=== PATIENT | male | born 1975 | race Caucasian/White ===

== ENCOUNTER 2021-04-10 19:40 | Emergency (ER) | payer SELFPAY ==
[~2021-04-10] VITALS: Ht 182.9 cm; Wt 113.4 kg
[2021-04-10 19:43] VITALS: BP 116/76
== END 2021-04-11 02:03 | disposition left against medical advice (07) ==
LOC: ER 19:43
DX: R07.81 Pleurodynia (principal); M54.50 Low back pain, unspecified; Z53.21 Procedure and treatment not carried out due to patient leaving prior to being seen by health care provider
CPT/HCPCS: 72100